=== PATIENT | female | born 1975 | race Two or more races ===

== ENCOUNTER 2017-03-11 21:59 | Emergency (ER) | payer OTHER ==
[~2017-03-11] VITALS: Ht 154.9 cm; Wt 93.0 kg
[~2017-03-11 21:59] MED LIST: ALBUTEROL SULF8.5 GM INH; CIPROFLOXACIN250 MG PO; FLOMAX0.4 MG ORAL; NITROFURANTOIN100 M2 ORAL; NKM; NORCO 10/3251 EA ORAL; OMEPRAZOLE20 M2 ORAL; TRAMADOL HCL50 MG ORAL
[2017-03-11] MEDS ORDERED: DICYCLOMINE HCL10 MG PO (22:44)
[2017-03-11] MEDS ORDERED: ATORVASTATIN CA20 MG ORAL (22:47)
[2017-03-11] MEDS ORDERED: LISINOPRIL2.5 MG ORAL (22:48)
[2017-03-11] MEDS ORDERED: METFORMIN HCL1000 M1 ORAL (22:48)
[2017-03-11] MEDS ORDERED: ASPIRIN81 MG ORAL (22:49)
[2017-03-11] MEDS ORDERED: Morphine Sulfate 4mg/ml Inj IVP ONE (23:00)
[2017-03-11 23:18] LABS: BASOPHILS % (AUTO) 0.9 % (0.0-2.0); EOSINOPHILS % (AUTO) 2.2 % (0.0-3.0); MEAN CORPUSCULAR HEMOGLOBIN 30.9 PG (27.0-31.0); MEAN CORPUSCULAR HGB CONC 34.2 G/DL (32.0-36.0); MEAN CORPUSCULAR VOLUME 90 FL (80-99); MEAN PLATELET VOLUME 8.8 FL (6.5-10.1); MONOCYTES % (AUTO) 6.7 % (1.0-10.0); NEUTROPHILS % (AUTO) 64.1 % (45.0-75.0); PLATELET COUNT 297 K/UL (150-450); RED BLOOD COUNT 4.32 M/UL (4.20-5.40); RED CELL DISTRIBUTION WIDTH 13.1 % (11.6-14.8)
[2017-03-11 23:20] LABS: APPEARANCE,URINE SLIGHTLY CLOUDY; KETONES,URINE NEGATIVE (NEGATIVE); LEUKOCYTE ESTERASE ,URINE 1+ (NEGATIVE); NITRITE,URINE NEGATIVE (NEGATIVE); PH,URINE 7 (4.5-8.0); PROTEIN,URINE NEGATIVE (NEGATIVE); UROBILINOGEN,URINE NORMAL MG/DL (0.0-1.0)
[2017-03-11 23:26] LABS: BACTERIA,URINE FEW /HPF; SQUAMOUS EPITHELIAL CELL,UR MODERATE /LPF (NONE/OCC); WBC,URINE 0-2 /HPF (0 - 2)
[2017-03-11 23:41] VITALS: BP 125/76
[2017-03-12 00:08] LABS: ALANINE AMINOTRANSFERASE 28 U/L (3-33); ANION GAP 13 (5-15); ASPARTATE AMINO TRANSFERASE 18 U/L (5-40); CALCIUM 11.1 mg/dL (8.6-10.2); CARBON DIOXIDE 24 mEQ/L (20-30); CHLORIDE 104 mEQ/L (98-107); CREATININE 0.8 mg/dL (0.5-0.9); GLOMERULAR FILTRATION RATE > 60 mL/min (>60); HEMOLYSIS 3; LIPASE 32 U/L (< 60); POTASSIUM 3.9 mEQ/L (3.4-4.9); SODIUM 141 mEQ/L (135-145); TOTAL PROTEIN 6.7 g/dL (6.6-8.7)
[2017-03-12] MEDS ORDERED: Levofloxacin 500mg tab ORAL ONE (01:15)
[2017-03-12 01:22] VITALS: BP 127/68
[2017-03-12] MEDS ORDERED: LEVAQUIN500 MG ORAL (01:28)
[2017-03-12] MEDS ORDERED: METRONIDAZOLE500 MG ORAL (01:28)
[2017-03-12] MEDS ORDERED: ACETAMINOPHEN-1 EAC1 ORAL (01:28)
[2017-03-12 01:41] VITALS: BP 127/68
--- NOTE | 2017-03-12 03:20 | Emergency Room Report ---
History of Present Illness General Chief Complaint: Abdominal Pain Source: Patient Present Illness HPI Patient presents with fairly diffuse abdominal pain She reports that she has had pain previously in the lower abdomen however since Wednesday she felt diffuse pain Patient reports that initially she had one episode of vomiting and diarrhea however none since then Denies any fevers or chills denies any chest pain shortness of breath pain is 7/ 10 Patient denies any blood in stool denies any trauma Denies any recent travel Allergies: Coded Allergies: No Known Allergies (Unverified , 12/18/13) Patient History Past Medical History: see triage record Pertinent Family History: none Last Menstrual Period: 02/19/17 Now: No Reviewed Nursing Documentation: PMH: Agreed, PSxH: Agreed Nursing Documentation-PMH Past Medical History: No History, Except For Hx Cardiac Problems: No - Thyroid problems Hx Hypertension: Yes Hx Asthma: Yes Hx Diabetes: Yes Hx Cancer: No Hx Gastrointestinal Problems: No - Kidney stones Hx Neurological Problems: No Review of Systems All Other Systems: negative except mentioned in HPI Physical Exam Vital Signs Date Time Temp Pulse Resp B/P (MAP) Pulse Ox O2 Delivery O2 Flow Rate FiO2 03/11/17 22:09 98.2 82 17 143/95 99 Room Air Sp02 EP Interpretation: reviewed, normal General Appearance: no apparent distress Head: normocephalic, atraumatic Eyes: bilateral eye PERRL, bilateral eye EOMI ENT: hearing grossly normal, normal pharynx, TMs + canals normal, uvula midline Neck: full range of motion, supple, no meningismus, no bony tend Respiratory: lungs clear, normal breath sounds, no rhonchi, no respiratory distress, no retraction, no accessory muscle use Cardiovascular #1: normal peripheral pulses, regular rate, rhythm, no edema, no gallop, no JVD, no murmur Gastrointestinal: normal bowel sounds, soft, no mass, no organomegaly, non- distended, no guarding, no hernia, no pulsatile mass, no rebound, tenderness - Patient is uncomfortable on palpation diffusely, no obvious focal finding however some epigastric and mid abdominal pain Genitourinary: no CVA tenderness Musculoskeletal: normal inspection Neurologic: oriented x3, responsive, needle polisher III-XII nml as tested, motor strength/ tone normal, sensory intact Psychiatric: mood/affect normal Skin: normal color, no rash, warm/dry, palpation normal Lymphatic: normal inspection, no adenopathy Medical Decision Making Diagnostic Impression: Primary Impression: colitis ER Course With the patient's history and examination, multiple differentials considered, including but not limited to , ectopic , ovarian torsion, gastritis, cholecystitis, pancreatitis, appendicitis Patient's blood work is at baseline levels CT imaging does reveal some extending and diffuse Thickening in line with colitis versus diverticulitis Patient has done well throughout her stay Given the lack of any obvious sepsis Patient's white blood cell count is appropriate And patient's there good candidate for initial conservative outpatient trial Labs Test 03/11/17 23:00 White Blood Count 11.0 K/UL (4.8-10.8) Red Blood Count 4.32 M/UL (4.20-5.40) Hemoglobin 13.4 G/DL (12.0-16.0) Hematocrit 39.1 % (37.0-47.0) Mean Corpuscular Volume 90 FL (80-99) Mean Corpuscular Hemoglobin 30.9 PG (27.0-31.0) Mean Corpuscular Hemoglobin Concent 34.2 G/DL (32.0-36.0) Red Cell Distribution Width 13.1 % (11.6-14.8) Platelet Count 297 K/UL (150-450) Mean Platelet Volume 8.8 FL (6.5-10.1) Neutrophils (%) (Auto) 64.1 % (45.0-75.0) Lymphocytes (%) (Auto) 26.0 % (20.0-45.0) Monocytes (%) (Auto) 6.7 % (1.0-10.0) Eosinophils (%) (Auto) 2.2 % (0.0-3.0) Basophils (%) (Auto) 0.9 % (0.0-2.0) Urine Color Pale yellow Urine Appearance Slightly cloudy Urine pH 7 (4.5-8.0) Urine Specific [place] 1.015 (1.005-1.035) Urine Protein Negative (NEGATIVE) Urine Glucose (UA) Negative (NEGATIVE) Urine Ketones Negative (NEGATIVE) Urine Occult Blood 2+ (NEGATIVE) Urine Nitrite Negative (NEGATIVE) Urine Bilirubin Negative (NEGATIVE) Urine Urobilinogen Normal MG/DL (0.0-1.0) Urine Leukocyte Esterase 1+ (NEGATIVE) Urine RBC 5-10 /HPF (0 - 2) Urine WBC 0-2 /HPF (0 - 2) Urine Squamous Epithelial Cells Moderate /LPF (NONE/OCC) Urine Bacteria Few /HPF (NONE) Urine HCG, Qualitative Negative Sodium Level 141 mEQ/L (135-145) Potassium Level 3.9 mEQ/L (3.4-4.9) Chloride Level 104 mEQ/L (98-107) Carbon Dioxide Level 24 mEQ/L (20-30) Anion Gap 13 (5-15) Blood Urea Nitrogen 7 mg/dL (7-23) Creatinine 0.8 mg/dL (0.5-0.9) Estimat Glomerular Filtration Rate > 60 mL/min (>60) Glucose Level 205 mg/dL (74-106) Calcium Level 11.1 mg/dL (8.6-10.2) Total Bilirubin < 0.2 mg/dL (0.0-1.2) Aspartate Amino Transf (AST/SGOT) 18 U/L (5-40) Alanine Aminotransferase (ALT/SGPT) 28 U/L (3-33) Alkaline Phosphatase 88 U/L (35-104) Total Protein 6.7 g/dL (6.6-8.7) Albumin 3.4 g/dL (3.5-5.2) Globulin 3.3 g/dL Albumin/Globulin Ratio 1.0 (1.0-2.7) Lipase 32 U/L (< 60) CT/MRI/US Diagnostic Results CT/MRI/US Diagnostic Results : Impression CT abdomen pelvis: Refer to her report for full specifics, evidence of colon wall thickening, in line with colitis versus diverticulitis Last Vital Signs Date Time Temp Pulse Resp B/P (MAP) Pulse Ox O2 Delivery O2 Flow Rate FiO2 03/12/17 01:41 98.4 78 17 127/68 98 Room Air Status: improved Disposition: HOME, SELF-CARE Condition: Improved Scripts Acetaminophen With Codeine (T#3) (TYLENOL #3 TAB*) Y Tab 1 TAB ORAL Q8H Y for For Pain, #12 TAB Prov: JENNIFER IGLESIAS.OGia 03/12/17 Metronidazole* (FLAGYL*) 500 Mg Tablet 500 MG ORAL BID, #20 TAB Prov: JENNIFER IGLESIAS.OGia 03/12/17 Levofloxacin* (LEVAQUIN*) 500 Mg Tablet 500 MG ORAL DAILY for 10 Days, TAB Prov: JENNIFER IGLESIAS D.O. 03/12/17 Referrals: [facility],REFERRIN (PCP) Patient Instructions: Abdominal Pain, Adult, Colitis Additional Instructions: Patient is provided with the discharge instructions notified to follow up with primary doctor in the next 2-3 days otherwise return to the er with any worsening symptoms. Please note that this report is being documented using [employer] technology. This can lead to erroneous entry secondary to incorrect interpretation by the dictating instrument. JENNIFER IGLESIAS D.O. Mar 12, 2017 03:20
--- NOTE | 2017-03-12 08:39 | Diagnostic Imaging Report ---
Indication: Abdominal pain Technique: Continuous helical transaxial imaging of the abdomen and pelvis was obtained from the lung bases to the pubic symphysis during intravenous contrast administration. Coronal 2-D reformats were also obtained. Study obtained in a Siemens sensation [address] Total Dose length Product (DLP): [address] Dose Index Volume (CTDIvol): 26 mGy Comparison: 04/21/14 Findings: The lung bases are clear. The liver is hypodense consistent with fatty infiltration. There is some inflammatory soft tissue stranding in the area of the ascending colon and right paracolic gutter. There are small inflammatory nodes likely reactive. The appendix is not seen. The nature of the inflammation is unknown but given the location and presence of diverticula findings could be due to diverticulitis. A colitis is not excluded. There is no pneumatosis or free air. There is no free fluid. Bilateral ovaries noted. Uterus noted but not evaluated well. There is a 5 mm stone in the lower pole calyx of the left kidney. There is mild right hydronephrosis without evidence of an obstructing stone. No evidence of bowel obstruction. The gallbladder is contracted and not evaluated well on this examination. Impression: Inflammation in the right lower quadrant of abdomen. Findings may be due to diverticulitis or colitis. Appendicitis is doubtful since there is no identification of an enlarged appendix. Small nonobstructive stone in the left kidney. Minimal right hydronephrosis without obstructing stone. The possibility of a recently passed stone might be considered. Pyelonephritis or pyelitis might be considered. Please correlate clinically Fatty liver The CT scanner at [facility] is accredited by the [employer] and the scans are performed using dose optimization techniques as appropriate to a performed exam including Automatic Exposure control.
== END 2017-03-12 01:45 | disposition home or self-care (01) ==
LOC: EMR 22:40
DX: K52.9 Noninfective gastroenteritis and colitis, unspecified (principal); E11.9 Type 2 diabetes mellitus without complications; I10 Essential (primary) hypertension; J45.909 Unspecified asthma, uncomplicated; N20.0 Calculus of kidney; K76.0 Fatty (change of) liver, not elsewhere classified
CPT/HCPCS: 36415; 74177; 80053; 81003; 81025; 83690; 85025; 96374; 96375; 99284; J2270; J2405; Q9967

== ENCOUNTER 2017-07-04 00:44 | Emergency (ER) | payer MEDICAID, OTHER ==
[~2017-07-04] VITALS: Ht 154.9 cm; Wt 90.7 kg
[~2017-07-04 00:44] MED LIST changes: +ACETAMINOPHEN-1 EAC1 ORAL; +ASPIRIN81 MG ORAL; +ATORVASTATIN CA20 MG ORAL; +DICYCLOMINE HCL10 MG PO; +LEVAQUIN500 MG ORAL; +LISINOPRIL2.5 MG ORAL; +METFORMIN HCL1000 M1 ORAL; +METRONIDAZOLE500 MG ORAL
[2017-07-04] MEDS ORDERED: HYDROmorphone 1mg/ml Carpuject IVP ONE (01:15)
--- NOTE | 2017-07-04 01:17 | Emergency Room Report ---
History of Present Illness General Chief Complaint: Abdominal Pain Source: Patient Present Illness HPI This is a 42-year-old female with history of kidney stone. She presents with left lower quadrant pain the last 3 days. Worse with palpation. No vomiting no diarrhea. No fever. No dysuria frequency. Pain is 9/10. Allergies: Coded Allergies: No Known Allergies (Unverified , 12/18/13) Patient History Past Medical History: see triage record, old chart reviewed Past Surgical History: other Pertinent Family History: none Social History: Denies: smoking Last Menstrual Period: 06/19/17 Now: No - unknown : 1 Para: 1 Immunizations: other Reviewed Nursing Documentation: PMH: Agreed, PSxH: Agreed Nursing Documentation-PMH Hx Cardiac Problems: No - Thyroid problems, Kidney stones Hx Hypertension: Yes Hx Asthma: Yes Hx Diabetes: Yes Hx Cancer: No Hx Gastrointestinal Problems: Yes - Crohn's Hx Neurological Problems: No Review of Systems Eye: Denies: eye pain, blurred vision ENT: Denies: ear pain, nose congestion, throat swelling Respiratory: Denies: cough, shortness of breath Cardiovascular: Denies: chest pain, palpitations Gastrointestinal: Reports: abdominal pain, Denies: diarrhea, nausea, vomiting Musculoskeletal: Denies: back pain, joint pain Skin: Denies: rash Neurological: Denies: headache, numbness Endocrine: Denies: increased thirst, increased urine Hematologic/Lymphatic: Denies: easy bruising All Other Systems: negative except mentioned in HPI Physical Exam Vital Signs Date Time Temp Pulse Resp B/P (MAP) Pulse Ox O2 Delivery O2 Flow Rate FiO2 07/04/17 00:55 98.1 71 18 199/107 93 Room Air vitals with high blood pressure Sp02 EP Interpretation: reviewed, normal General Appearance: well appearing, no apparent distress, alert, obese Head: normocephalic, atraumatic Eyes: bilateral eye PERRL, bilateral eye EOMI ENT: hearing grossly normal, normal pharynx Neck: full range of motion, supple, no meningismus Respiratory: chest non-tender, lungs clear, normal breath sounds Cardiovascular #1: regular rate, rhythm, no murmur Gastrointestinal: normal bowel sounds, non tender, no mass, no organomegaly, no bruit, non-distended, tenderness - left lower quadrant tenderness Musculoskeletal: back normal, gait/station normal, normal range of motion Neurologic: alert, oriented x3 Psychiatric: mood/affect normal Skin: warm/dry Medical Decision Making Diagnostic Impression: Primary Impression: Ureteral stone with hydronephrosis ER Course pt presents with ureteral stone and colic. no e/o infection or This patient presents with ureteral stone.appy. pain well controlled. will dc home. Lab Results Impression labs unremarkable. CT/MRI/US Diagnostic Results CT/MRI/US Diagnostic Results : Imaging Test Ordered: CT abd and pelvis Impression Read by radiologist. 4mm left UVJ stone. Last Vital Signs Date Time Temp Pulse Resp B/P (MAP) Pulse Ox O2 Delivery O2 Flow Rate FiO2 07/04/17 00:55 98.1 71 18 199/107 93 Room Air Status: improved Disposition: HOME, SELF-CARE Condition: Stable Scripts Tamsulosin Hcl (TAMSULOSIN HCL*) 0.4 Mg Cap.er.24h 0.4 MG ORAL BEDTIME, #14 CAP Prov: RUSTY KAISER M.D. 07/04/17 Hydrocodone/Acetaminophen 5-325* (HYDROCODONE/ACETAMINOPHEN 5-325*) 1 Each Tablet 1 TAB ORAL Q6H Y for For Pain, #30 TAB 0 Refills Prov: RUSTY KAISER M.D. 07/04/17 Referrals: Yobany Nguyen MD (PCP) Additional Instructions: Followup with your DrGia within a week. You will be referred to see a urologist. Return if symptom worsen. Return for fever. RUSTY KAISER M.D. Jul 04, 2017 01:17
[2017-07-04 01:23] LABS: APPEARANCE,URINE CLEAR; KETONES,URINE NEGATIVE (NEGATIVE); LEUKOCYTE ESTERASE ,URINE 1+ (NEGATIVE); NITRITE,URINE NEGATIVE (NEGATIVE); PH,URINE 6.5 (4.5-8.0); PROTEIN,URINE NEGATIVE (NEGATIVE); UROBILINOGEN,URINE NORMAL MG/DL (0.0-1.0)
[2017-07-04 01:31] LABS: BASOPHILS % (AUTO) 1.1 % (0.0-2.0); EOSINOPHILS % (AUTO) 2.6 % (0.0-3.0); LYMPHOCYTES % (AUTO) 34.1 % (20.0-45.0); MEAN CORPUSCULAR HEMOGLOBIN 29.4 PG (27.0-31.0); MEAN CORPUSCULAR HGB CONC 32.9 G/DL (32.0-36.0); MEAN CORPUSCULAR VOLUME 89 FL (80-99); MEAN PLATELET VOLUME 8.2 FL (6.5-10.1); MONOCYTES % (AUTO) 6.4 % (1.0-10.0); NEUTROPHILS % (AUTO) 55.8 % (45.0-75.0); PLATELET COUNT 401 K/UL (150-450); RED BLOOD COUNT 4.62 M/UL (4.20-5.40); RED CELL DISTRIBUTION WIDTH 12.8 % (11.6-14.8); WHITE BLOOD COUNT 9.3 K/UL (4.8-10.8)
[2017-07-04 01:40] LABS: BACTERIA,URINE OCCASIONAL /HPF; RBC,URINE 20-30 /HPF (0 - 2); SQUAMOUS EPITHELIAL CELL,UR FEW /LPF (NONE/OCC)
[2017-07-04 01:42] LABS: ANION GAP 7 mmol/L (5-15); CALCIUM 11.3 MG/DL (8.5-10.1); CARBON DIOXIDE 28 MMOL/L (21-32); CHLORIDE 105 MMOL/L (98-107); CREATININE 0.9 MG/DL (0.55-1.30); GLOMERULAR FILTRATION RATE > 60 mL/min (>60); SODIUM 140 MMOL/L (136-145)
[2017-07-04 01:47] LABS: ALANINE AMINOTRANSFERASE 30 U/L (12-78); ALBUMIN/GLOBULIN RATIO 0.8 (1.0-2.7); ASPARTATE AMINO TRANSFERASE 22 U/L (15-37); LIPASE 145 U/L (73-393); TOTAL PROTEIN 7.6 G/DL (6.4-8.2)
[2017-07-04 02:33] VITALS: BP 180/104
[2017-07-04] MEDS ORDERED: TAMSULOSIN HCL0.4 MG ORAL (03:25)
[2017-07-04] MEDS ORDERED: HYDROCODON-ACE1 EA15 ORAL (03:25)
[2017-07-04 03:50] VITALS: BP 160/68
[2017-07-04 03:51] VITALS: BP 160/89
--- NOTE | 2017-07-04 10:03 | Diagnostic Imaging Report ---
Indication: Abdominal pain, left-sided. Technique: CT of the abdomen and pelvis utilizing automated exposure control without oral or intravenous contrast. CT dose: Total DLP 1558 mGycm; CTDI vol 29.4 mGy Comparison: 03/11/2017 Findings: Please note that evaluation of the abdominal and pelvic viscera is limited without the use of intravenous and oral contrast. Within these limitations, the following observations are made: Minimal dependent atelectasis noted in the lung bases. Heart size is within normal limits. There is no pericardial effusion. Hypoattenuation of the liver relative to the spleen compatible with hepatic steatosis. No discrete liver mass appreciated on this noncontrast exam. Gallbladder unremarkable. Noncontrast evaluation of the spleen, adrenal glands and pancreas is grossly unremarkable. There is a 4 mm stone at the left ureterovesicular junction (series 3 image #134). There is mild left-sided hydroureteronephrosis. Additional punctate nonobstructing stones are noted within the left kidney (series 3 image #64 and image #54). No urinary tract stone is seen on the right. Bladder is unremarkable. Uterus and adnexa are grossly unremarkable in appearance for a premenopausal female. There is no evidence of bowel obstruction. No free intraperitoneal fluid or air. Appendix is normal. A few scattered colonic diverticula are seen. No evidence to suggest an acute diverticulitis. Abdominal aorta is normal in caliber. Small retroperitoneal lymph nodes are noted, none of which are pathologically enlarged by imaging size criteria. These are thought to be reactive in etiology. No acute osseous abnormality is seen. Impression: Limited evaluation without intravenous or oral contrast. * 4 mm left ureterovesicular junction stone with mild left-sided hydroureteronephrosis. Correlate with urinalysis to exclude pyelitis/pyelonephritis. Additional punctate nonobstructing left renal stone seen. No urinary tract stone seen on the right. * Hepatic steatosis. * Diverticulosis without evidence to suggest acute diverticulitis. This corresponds with the statrad preliminary report. The CT scanner at [facility] is accredited by the [employer] and the scans are performed using protocols designed to limit radiation exposure to as low as reasonably achievable to attain images of sufficient resolution adequate for diagnostic evaluation.
== END 2017-07-04 03:51 | disposition home or self-care (01) ==
LOC: EMR 01:15
DX: N13.2 Hydronephrosis with renal and ureteral calculous obstruction (principal); E11.9 Type 2 diabetes mellitus without complications; J45.909 Unspecified asthma, uncomplicated; K57.30 Diverticulosis of large intestine without perforation or abscess without bleeding; K76.0 Fatty (change of) liver, not elsewhere classified
CPT/HCPCS: 36415; 74176; 80053; 81003; 81025; 83690; 85025; 96374; 96375; 99284; J1170; J2405

== ENCOUNTER 2018-07-19 18:08 | Emergency (ER) | payer MEDICAID ==
[~2018-07-19] VITALS: Ht 152.4 cm; Wt 95.3 kg
[~2018-07-19 18:08] MED LIST changes: +HYDROCODON-ACE1 EA15 ORAL; +TAMSULOSIN HCL0.4 MG ORAL
[2018-07-19 18:22] VITALS: BP 170/99
--- NOTE | 2018-07-19 18:27 | Emergency Room Report ---
History of Present Illness General Chief Complaint: Nausea Source: Patient (Charissa Pickett DO) Present Illness HPI Patient presents with complaints of nausea and vomiting Reports that she had bilateral upper epigastric discomfort Now recently having suprapubic and lower abdominal discomfort as well Triage note reports right lower quadrant however patient points to suprapubic and bilateral lower abdomen and denies any diarrhea patient was questioning possible Denies any fevers denies any flank pain (SanchezlucienCharissa WRIGHT) Allergies: Coded Allergies: No Known Allergies (Unverified , 12/18/13) Patient History Past Medical History: see triage record Pertinent Family History: none Last Menstrual Period: 05/02/18 Reviewed Nursing Documentation: PMH: Agreed; PSxH: Agreed (SanchezCharissa mcgraw DO) Nursing Documentation-PMH Past Medical History: No History, Except For Hx Cardiac Problems: No - Thyroid problems, Kidney stones Hx Hypertension: Yes Hx Asthma: Yes Hx Diabetes: Yes Hx Cancer: No Hx Gastrointestinal Problems: Yes - Crohn's Hx Neurological Problems: No (hCarissa Pickett DO) Review of Systems All Other Systems: negative except mentioned in HPI (SanchezporscheCharissa WRIGHT) Physical Exam Vital Signs Date Time Temp Pulse Resp B/P (MAP) Pulse Ox O2 Delivery O2 Flow Rate FiO2 07/19/18 18:10 97.9 101 18 175/103 98 Room Air Sp02 EP Interpretation: reviewed, normal General Appearance: well appearing, no apparent distress Head: normocephalic, atraumatic Eyes: bilateral eye PERRL, bilateral eye EOMI ENT: hearing grossly normal, normal pharynx, TMs + canals normal, uvula midline Neck: full range of motion, supple, no meningismus, no bony tend Respiratory: lungs clear, normal breath sounds, no rhonchi, no respiratory distress, no retraction, no accessory muscle use Cardiovascular #1: normal peripheral pulses, regular rate, rhythm, no edema, no gallop, no JVD, no murmur Gastrointestinal: normal bowel sounds, non tender - On palpation however subjectively points to mid abdomen bilateral lower abdomen, soft, no mass, no organomegaly, non-distended, no guarding, no hernia, no pulsatile mass, no rebound Genitourinary: no CVA tenderness Musculoskeletal: normal inspection Neurologic: oriented x3, responsive, disease control inspector III-XII nml as tested, motor strength/ tone normal, sensory intact Psychiatric: mood/affect normal Skin: normal color, no rash, warm/dry, palpation normal Lymphatic: normal inspection, no adenopathy (Charissa Pickett DO) Medical Decision Making Diagnostic Impression: Primary Impression: Nausea and vomiting in adult patient Additional Impressions: Abdominal pain Qualified Codes: R10.30 - Lower abdominal pain, unspecified Threatened in first trimester ER Course With the patient's history and examination, multiple differentials considered, including but not limited to , ectopic , ovarian torsion, gastritis, cholecystitis, pancreatitis, appendicitis Patient has had several CAT scan imaging here in the hospital At this time we will initiate workup with blood work and urine sample Patient's abdomen remains soft my consideration for appendicitis is low Ovarian torsion is to be considered however again patient appears fairly comfortable Patient's test is positive Patient therefore is having pelvic ultrasound given that there is no initial ultrasound Less likely for ectopic given the lack of any bleeding However will be documented along with beta Quant and anticipate close outpatient follow-up Labs Test 07/19/18 18:20 White Blood Count 12.3 K/UL (4.8-10.8) Red Blood Count 4.78 M/UL (4.20-5.40) Hemoglobin 13.9 G/DL (12.0-16.0) Hematocrit 43.0 % (37.0-47.0) Mean Corpuscular Volume 90 FL (80-99) Mean Corpuscular Hemoglobin 29.1 PG (27.0-31.0) Mean Corpuscular Hemoglobin Concent 32.3 G/DL (32.0-36.0) Red Cell Distribution Width 13.1 % (11.6-14.8) Platelet Count 325 K/UL (150-450) Mean Platelet Volume 8.2 FL (6.5-10.1) Neutrophils (%) (Auto) 59.9 % (45.0-75.0) Lymphocytes (%) (Auto) 32.8 % (20.0-45.0) Monocytes (%) (Auto) 4.6 % (1.0-10.0) Eosinophils (%) (Auto) 1.4 % (0.0-3.0) Basophils (%) (Auto) 1.3 % (0.0-2.0) Urine Color Pale yellow Urine Appearance Clear Urine pH 7 (4.5-8.0) Urine Specific [place] 1.010 (1.005-1.035) Urine Protein Negative (NEGATIVE) Urine Glucose (UA) Negative (NEGATIVE) Urine Ketones Negative (NEGATIVE) Urine Blood 4+ (NEGATIVE) Urine Nitrite Negative (NEGATIVE) Urine Bilirubin Negative (NEGATIVE) Urine Urobilinogen Normal MG/DL (0.0-1.0) Urine Leukocyte Esterase Negative (NEGATIVE) Urine HCG, Qualitative Positive (NEGATIVE) Sodium Level 136 MMOL/L (136-145) Potassium Level 3.5 MMOL/L (3.5-5.1) Chloride Level 101 MMOL/L (98-107) Carbon Dioxide Level 27 MMOL/L (21-32) Anion Gap 8 mmol/L (5-15) Blood Urea Nitrogen 8 mg/dL (7-18) Creatinine 0.9 MG/DL (0.55-1.30) Estimat Glomerular Filtration Rate > 60 mL/min (>60) Glucose Level 115 MG/DL (74-106) Calcium Level 12.4 MG/DL (8.5-10.1) (Charissa Pickett DO) ER Course Patient signout to me. She was pending ultrasound. I did a bedside ultrasound , transabdominal. There was an intrauterine . By my estimate about 8- 10 weeks. Good movement and good heartbeat. I will discharge the patient with threatened miscarriage precaution. Review patient medication. Told patient to stop her lisinopril. She can double up On her metoprolol for blood pressure control. (Alexis Mathew MD) Last Vital Signs Date Time Temp Pulse Resp B/P (MAP) Pulse Ox O2 Delivery O2 Flow Rate FiO2 07/19/18 18:22 97.9 88 19 170/99 99 Room Air Status: improved (Charissa Pickett DO) Disposition: HOME, SELF-CARE Condition: Stable Scripts Metoclopramide Hcl* (REGLAN*) 10 Mg Tablet 10 MG ORAL THREE TIMES A DAY, #10 TAB Prov: Charissa Pickett DO 07/19/18 Additional Instructions: Follow-up with your [facility] in 7 days. Take vitamins. You are about 8- 10 weeks . Return if symptom worsen. Charissa Pickett DO Jul 19, 2018 18:27 Alexis Mathew MD Jul 19, 2018 19:35
[2018-07-19] MEDS ORDERED: Ketorolac 30mg Inj IV ONE (18:30)
[2018-07-19] MEDS ORDERED: OMEPRAZOLE20 M2 ORAL (18:32)
[2018-07-19] MEDS ORDERED: METOPROLOL TART25 MG ORAL (18:32)
[2018-07-19] MEDS ORDERED: ATORVASTATIN CA20 MG ORAL (18:32)
[2018-07-19] MEDS ORDERED: ASPIRIN81 MG ORAL (18:32)
[2018-07-19 18:42] LABS: BASOPHILS % (AUTO) 1.3 % (0.0-2.0); EOSINOPHILS % (AUTO) 1.4 % (0.0-3.0); HEMOGLOBIN 13.9 G/DL (12.0-16.0); LYMPHOCYTES % (AUTO) 32.8 % (20.0-45.0); MEAN CORPUSCULAR VOLUME 90 FL (80-99); MONOCYTES % (AUTO) 4.6 % (1.0-10.0); NEUTROPHILS % (AUTO) 59.9 % (45.0-75.0); PLATELET COUNT 325 K/UL (150-450); RED BLOOD COUNT 4.78 M/UL (4.20-5.40); RED CELL DISTRIBUTION WIDTH 13.1 % (11.6-14.8); WHITE BLOOD COUNT 12.3 K/UL (4.8-10.8)
[2018-07-19 18:44] LABS: APPEARANCE,URINE CLEAR; BILIRUBIN, URINE NEGATIVE (NEGATIVE); COLOR,URINE PALE YELLOW; GLUCOSE, URINE (UA) NEGATIVE (NEGATIVE); KETONES,URINE NEGATIVE (NEGATIVE); LEUKOCYTE ESTERASE ,URINE NEGATIVE (NEGATIVE); NITRITE,URINE NEGATIVE (NEGATIVE); PH,URINE 7 (4.5-8.0); PROTEIN,URINE NEGATIVE (NEGATIVE); UROBILINOGEN,URINE NORMAL MG/DL (0.0-1.0)
[2018-07-19 18:51] LABS: ANION GAP 8 mmol/L (5-15); BLOOD UREA NITROGEN 8 mg/dL (7-18); CALCIUM 12.4 MG/DL (8.5-10.1); CARBON DIOXIDE 27 MMOL/L (21-32); CHLORIDE 101 MMOL/L (98-107); CREATININE 0.9 MG/DL (0.55-1.30); POTASSIUM 3.5 MMOL/L (3.5-5.1); SODIUM 136 MMOL/L (136-145)
[2018-07-19] MEDS ORDERED: REGLAN10 MG ORAL (19:18)
[2018-07-19] MEDS ORDERED: Metoprolol Tartrate 50mg tab ORAL ONE (20:00)
[2018-07-19 20:18] VITALS: BP 140/74
[2018-07-19 20:28] VITALS: BP 140/74
--- NOTE | 2018-07-19 20:49 | Diagnostic Imaging Report ---
EXAM: US First Trimester, Transabdominal US , Transvaginal CLINICAL HISTORY: PAIN TECHNIQUE: Real-time transabdominal and transvaginal obstetrical ultrasound of the maternal pelvis and a first trimester with image documentation. Transvaginal imaging was used for better evaluation of the fetus and adnexa. COMPARISON: No relevant prior studies available. FINDINGS: Gestation: Single live IUP with an estimated gestational age of 10 weeks and 1 day. Normal heart tones measuring up to 165 bpm. Placenta/amniotic fluid: Cannot be adequately evaluated due to the early gestational age. Uterus/cervix: Cervix is long and closed measuring up to 4.2 cm. No myometrial mass. Ovaries: Left ovary measures 3.2 x 2.1 x 1.7 cm. Right ovary measures 2.7 x 2.8 x 1.7 cm. Question left ovary corpus luteum. No mass. IMPRESSION: Single live IUP with an estimated gestational age of 10 weeks and 1 day.
== END 2018-07-19 20:36 | disposition home or self-care (01) ==
LOC: EMR 18:33
DX: O20.0 Threatened abortion (principal); Z3A.00 Weeks of gestation of pregnancy not specified; R11.2 Nausea with vomiting, unspecified; R10.9 Unspecified abdominal pain; I10 Essential (primary) hypertension; E11.9 Type 2 diabetes mellitus without complications
CPT/HCPCS: 36415; 76801; 76830; 80048; 81003; 81025; 84702; 85025; 96361; 96374; 96375; 99284; J1885; J2405

== ENCOUNTER 2018-07-24 01:05 | Emergency (ER) | payer MEDICAID ==
[~2018-07-24] VITALS: Ht 154.9 cm; Wt 93.0 kg
[~2018-07-24 01:05] MED LIST changes: +METOPROLOL TART25 MG ORAL; +REGLAN10 MG ORAL
--- NOTE | 2018-07-24 01:25 | NUR ---
ED Nurse Note: Patient walk in c/o lower abdominal cramping and vaginal bleeding since 2229 last night. Patient states she was seen at [facility] on Wednesday for abdominal pain. Patient is 10 weeks . Pt AO4. NAD. VSS. accompanied by family member. Reports abdominal pain 04/27.
--- NOTE | 2018-07-24 02:00 | NUR ---
ED Nurse Note: IV access established. Blood and urine collected; sent down to lab.
--- NOTE | 2018-07-24 02:15 | NUR ---
ED Nurse Note: 2nd type & screen collected; sent down to lab.
--- NOTE | 2018-07-24 02:27 | Emergency Room Report ---
History of Present Illness General Chief Complaint: Complications Source: Patient Present Illness HPI Patient was recently diagnosed with a . Patient is about 10 weeks per last visit. Patient develop acute onset of vaginal bleeding today. She's complained pelvic pain. She denies any fever chest pain shortness of breath. No other complaints are noted. Symptoms noted to be moderate to severe. No other modifying factors. No other associated signs and symptoms. No other complaints were noted. Allergies: Coded Allergies: No Known Allergies (Unverified , 12/18/13) Patient History Past Medical History: DM, HTN Past Surgical History: none Pertinent Family History: none Social History: Denies: smoking, alcohol use, drug use Last Menstrual Period: 04/2018 Now: Yes : 2 Para: 1 Reviewed Nursing Documentation: PMH: Agreed; PSxH: Agreed Nursing Documentation-PMH Hx Cardiac Problems: No - Thyroid problems, Kidney stones Hx Hypertension: Yes Hx Asthma: Yes Hx Diabetes: Yes Hx Cancer: No Hx Gastrointestinal Problems: Yes - Crohn's Hx Neurological Problems: No Review of Systems All Other Systems: negative except mentioned in HPI Physical Exam Vital Signs Date Time Temp Pulse Resp B/P (MAP) Pulse Ox O2 Delivery O2 Flow Rate FiO2 07/24/18 01:21 98.2 85 16 179/91 98 Room Air Sp02 EP Interpretation: reviewed, normal General Appearance: normal inspection, well appearing, no apparent distress, alert Head: atraumatic Eyes: bilateral eye normal inspection ENT: normal ENT inspection, hearing grossly normal, normal voice Neck: normal inspection, full range of motion, supple, no bony tend Respiratory: normal inspection, lungs clear, normal breath sounds, no respiratory distress, no retraction, no wheezing Cardiovascular #1: regular rate, rhythm, no edema Gastrointestinal: normal inspection, normal bowel sounds, non tender, soft, no guarding, no hernia Genitourinary: no CVA tenderness Musculoskeletal: normal inspection, back normal, normal range of motion Neurologic: normal inspection, alert, responsive, speech normal Psychiatric: normal inspection, judgement/insight normal, mood/affect normal Skin: normal inspection, normal color, no rash Medical Decision Making Diagnostic Impression: Primary Impression: Threatened miscarriage ER Course Patient presents emergency department today complaining of vaginal bleeding. Differential considerations include ectopic , miscarriage, just name a few. Patient's laboratory workup was not impressive. Patient's beta hCG was elevated. Patient's pelvic ultrasound did not show any acute changes and showed a positive IUP. Patient's blood type was positive Rh. Patient did not require a rhogram injection. Patient's vaginal exam did not show any evidence of active vaginal bleeding. Therefore felt the patient be discharged home.Patient is advised to follow up with primary doctor in 2-3 days and return the emergency room for any worsening symptoms and as needed. Labs Test 07/24/18 02:00 White Blood Count 10.3 K/UL (4.8-10.8) Red Blood Count 4.14 M/UL (4.20-5.40) Hemoglobin 12.2 G/DL (12.0-16.0) Hematocrit 37.1 % (37.0-47.0) Mean Corpuscular Volume 90 FL (80-99) Mean Corpuscular Hemoglobin 29.6 PG (27.0-31.0) Mean Corpuscular Hemoglobin Concent 33.0 G/DL (32.0-36.0) Red Cell Distribution Width 13.2 % (11.6-14.8) Platelet Count 275 K/UL (150-450) Mean Platelet Volume 7.6 FL (6.5-10.1) Neutrophils (%) (Auto) 62.2 % (45.0-75.0) Lymphocytes (%) (Auto) 31.3 % (20.0-45.0) Monocytes (%) (Auto) 4.0 % (1.0-10.0) Eosinophils (%) (Auto) 1.6 % (0.0-3.0) Basophils (%) (Auto) 0.8 % (0.0-2.0) Urine Color Pale yellow Urine Appearance Cloudy Urine pH 6.5 (4.5-8.0) Urine Specific [place] 1.015 (1.005-1.035) Urine Protein 2+ (NEGATIVE) Urine Glucose (UA) 2+ (NEGATIVE) Urine Ketones 1+ (NEGATIVE) Urine Blood 5+ (NEGATIVE) Urine Nitrite Negative (NEGATIVE) Urine Bilirubin Negative (NEGATIVE) Urine Urobilinogen Normal MG/DL (0.0-1.0) Urine Leukocyte Esterase 1+ (NEGATIVE) Urine RBC 5-10 /HPF (0 - 2) Urine WBC 2-4 /HPF (0 - 2) Urine Squamous Epithelial Cells Moderate /LPF (NONE/OCC) Urine Bacteria Moderate /HPF (NONE) Sodium Level 137 MMOL/L (136-145) Potassium Level 3.7 MMOL/L (3.5-5.1) Chloride Level 104 MMOL/L (98-107) Carbon Dioxide Level 22 MMOL/L (21-32) Anion Gap 11 mmol/L (5-15) Blood Urea Nitrogen 6 mg/dL (7-18) Creatinine 0.9 MG/DL (0.55-1.30) Estimat Glomerular Filtration Rate > 60 mL/min (>60) Glucose Level 209 MG/DL (74-106) Calcium Level 10.6 MG/DL (8.5-10.1) Total Bilirubin 0.1 MG/DL (0.2-1.0) Aspartate Amino Transf (AST/SGOT) 5 U/L (15-37) Alanine Aminotransferase (ALT/SGPT) 19 U/L (12-78) Alkaline Phosphatase 86 U/L (46-116) Total Protein 6.9 G/DL (6.4-8.2) Albumin 2.9 G/DL (3.4-5.0) Globulin 4.0 g/dL Albumin/Globulin Ratio 0.7 (1.0-2.7) Lipase 129 U/L (73-393) Human Chorionic Gonadotropin, Quant 653536 mIU/mL (1-6) CT/MRI/US Diagnostic Results CT/MRI/US Diagnostic Results : Imaging Test Ordered: Pelvic ultrasound positive IUP Last Vital Signs Date Time Temp Pulse Resp B/P (MAP) Pulse Ox O2 Delivery O2 Flow Rate FiO2 07/24/18 01:21 98.2 85 16 179/91 98 Room Air Status: improved Disposition: HOME, SELF-CARE Condition: Stable Conrad Gonzales MD Jul 24, 2018 02:27
[2018-07-24 02:44] LABS: BASOPHILS % (AUTO) 0.8 % (0.0-2.0); EOSINOPHILS % (AUTO) 1.6 % (0.0-3.0); HEMATOCRIT 37.1 % (37.0-47.0); HEMOGLOBIN 12.2 G/DL (12.0-16.0); LYMPHOCYTES % (AUTO) 31.3 % (20.0-45.0); MEAN CORPUSCULAR VOLUME 90 FL (80-99); NEUTROPHILS % (AUTO) 62.2 % (45.0-75.0); PLATELET COUNT 275 K/UL (150-450); RED BLOOD COUNT 4.14 M/UL (4.20-5.40); RED CELL DISTRIBUTION WIDTH 13.2 % (11.6-14.8); WHITE BLOOD COUNT 10.3 K/UL (4.8-10.8)
[2018-07-24 02:45] LABS: APPEARANCE,URINE CLOUDY; BILIRUBIN, URINE NEGATIVE (NEGATIVE); COLOR,URINE PALE YELLOW; GLUCOSE, URINE (UA) 2+ (NEGATIVE); KETONES,URINE 1+ (NEGATIVE); LEUKOCYTE ESTERASE ,URINE 1+ (NEGATIVE); NITRITE,URINE NEGATIVE (NEGATIVE); PH,URINE 6.5 (4.5-8.0); PROTEIN,URINE 2+ (NEGATIVE); UROBILINOGEN,URINE NORMAL MG/DL (0.0-1.0)
[2018-07-24 02:58] LABS: ANION GAP 11 mmol/L (5-15); BLOOD UREA NITROGEN 6 mg/dL (7-18); CALCIUM 10.6 MG/DL (8.5-10.1); CARBON DIOXIDE 22 MMOL/L (21-32); CHLORIDE 104 MMOL/L (98-107); CREATININE 0.9 MG/DL (0.55-1.30); POTASSIUM 3.7 MMOL/L (3.5-5.1); SODIUM 137 MMOL/L (136-145)
[2018-07-24 03:03] LABS: ALANINE AMINOTRANSFERASE 19 U/L (12-78); ALBUMIN 2.9 G/DL (3.4-5.0); ALBUMIN/GLOBULIN RATIO 0.7 (1.0-2.7); ALKALINE PHOSPHATASE 86 U/L (46-116); ASPARTATE AMINO TRANSFERASE 5 U/L (15-37); BILIRUBIN,TOTAL 0.1 MG/DL (0.2-1.0)
--- NOTE | 2018-07-24 03:45 | NUR ---
ED Nurse Note: ERMD at bedside for pelvic exam.
--- NOTE | 2018-07-24 04:05 | NUR ---
ED Nurse Note: Patient cleared for discharge per ERMD. AO4. NAD. VSS. Accompanied by family member. Patient given prescriptions and discharge instructions; verbalized understanding. IV and ID band removed. Patient ambulated out with all personal belongings with steady gait.
[2018-07-24 04:16] VITALS: BP 179/91
--- NOTE | 2018-07-24 04:50 | Diagnostic Imaging Report ---
EXAM: US Ob 1St Trimester CLINICAL HISTORY: ABD PAIN TECHNIQUE: Real-time ultrasound of the ob 1st trimester with image documentation. COMPARISON: 07/19/18 FINDINGS: Single live IUP. EGA by crown rump length 10 weeks 2 days. heart rate 175 BPM. Suspected corpus luteal cyst left ovary. Remainder unremarkable. Small ovarian follicles. Blood flow seen to bilateral maternal ovaries. IMPRESSION: Single live IUP with EGA of 10 weeks 2 days.
== END 2018-07-24 04:05 | disposition home or self-care (01) ==
LOC: EMR 01:40
DX: O20.0 Threatened abortion (principal); Z3A.10 10 weeks gestation of pregnancy; O09.521 Supervision of elderly multigravida, first trimester
CPT/HCPCS: 36415; 76801; 76830; 80053; 81003; 83690; 84702; 85025; 86900; 86901; 87086; 99284

== ENCOUNTER 2019-09-03 12:49 | Emergency (ER) | payer MEDICAID ==
[~2019-09-03] VITALS: Ht 152.4 cm; Wt 97.5 kg
[2019-09-03] MEDS ORDERED: ADALAT20 MG ORAL (13:03)
[2019-09-03] MEDS ORDERED: ZANTAC150 MG ORAL (13:03)
[2019-09-03] MEDS ORDERED: Tamsulosin 0.4mg cap ORAL STA (13:36)
[2019-09-03] MEDS ORDERED: Omnipaque-300 100ml vial INJ PRN (13:45)
[2019-09-03] MEDS ORDERED: DiphenhydrAMINE 50mg/ml Inj IVP ONE (13:45)
[2019-09-03] MEDS ORDERED: Morphine Sulfate 4mg/ml Inj (IV USE ONLY) IVP ONE (13:45)
[2019-09-03] MEDS ORDERED: Metoclopramide 10mg/2ml Inj IVP ONE (13:45)
[2019-09-03] MEDS ORDERED: Ketorolac 30mg Inj IV ONE (13:45)
[2019-09-03 14:16] LABS: BASOPHILS % (AUTO) 0.7 % (0.0-2.0); EOSINOPHILS % (AUTO) 0.7 % (0.0-3.0); HEMATOCRIT 41.4 % (37.0-47.0); LYMPHOCYTES % (AUTO) 14.7 % (20.0-45.0); MEAN CORPUSCULAR VOLUME 87 FL (80-99); MONOCYTES % (AUTO) 2.9 % (1.0-10.0); PLATELET COUNT 278 K/UL (150-450); RED BLOOD COUNT 4.79 M/UL (4.20-5.40); RED CELL DISTRIBUTION WIDTH 12.8 % (11.6-14.8); WHITE BLOOD COUNT 11.8 K/UL (4.8-10.8)
[2019-09-03 14:33] LABS: ANION GAP 10 mmol/L (5-15); APPEARANCE,URINE CLEAR; BILIRUBIN, URINE NEGATIVE (NEGATIVE); BLOOD UREA NITROGEN 9 mg/dL (7-18); CALCIUM 11.4 MG/DL (8.5-10.1); CARBON DIOXIDE 27 MMOL/L (21-32); CHLORIDE 104 MMOL/L (98-107); COLOR,URINE PALE YELLOW; CREATININE 1.1 MG/DL (0.55-1.30); GLUCOSE, URINE (UA) NEGATIVE (NEGATIVE); KETONES,URINE NEGATIVE (NEGATIVE); LEUKOCYTE ESTERASE ,URINE NEGATIVE (NEGATIVE); NITRITE,URINE NEGATIVE (NEGATIVE); PH,URINE 7 (4.5-8.0); POTASSIUM 3.2 MMOL/L (3.5-5.1); PROTEIN,URINE 1+ (NEGATIVE); SODIUM 140 MMOL/L (136-145); UROBILINOGEN,URINE NORMAL MG/DL (0.0-1.0)
[2019-09-03 14:38] LABS: ALANINE AMINOTRANSFERASE 53 U/L (12-78); ALBUMIN 3.5 G/DL (3.4-5.0); ALBUMIN/GLOBULIN RATIO 0.9 (1.0-2.7); ALKALINE PHOSPHATASE 89 U/L (46-116); ASPARTATE AMINO TRANSFERASE 38 U/L (15-37); BILIRUBIN,TOTAL 0.3 MG/DL (0.2-1.0)
--- NOTE | 2019-09-03 15:30 | NUR ---
ED Nurse Note:pt. came from home with hypertention and abdomiinal pain, A/Ox4 ambulatory, blood and urine sent to labs, given IV meds and fluids
--- NOTE | 2019-09-03 15:30 | Emergency Room Report ---
History of Present Illness General Chief Complaint: Abdominal Pain Source: Patient Present Illness HPI The patient presents with left flank pain. She has a history of stones in the past. Today the flank pain is been severe but intermittent. When it severe she feels nauseated but has not vomited. The pain radiates somewhat towards her back. She feels the urge to move her bowels. She has not taken any medication aside from her blood pressure pills. She did not take her metformin this morning. She denies any fever chills. There is no hematuria. She is not at this time. She rates the pain 10/10 at this time. 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 She has had kidney stones in the past and feels similar to that. When she had a kidney stone she was admitted for over 2 weeks and had to have laser surgery. In [address] showed a 4 mm stone in the left ureterovesicular junction. She does not remember if this passed spontaneously. Sometimes she has passed stones without requiring surgery. Uncertain type of stone but recognizes calcium oxalate when prompted. History of diabetes and hypertension. History of Crohn's disease. History of thyroid disease. No sore throat, chest pain, palpitations, vomiting, diarrhea, shortness of breath, joint pain, rashes, visual changes, dizziness, headache. Allergies: Coded Allergies: No Known Allergies (Unverified , 12/18/13) Patient History Past Medical History: see triage record, old chart reviewed Past Surgical History: other - Laser renal stone extraction, tummy tuck Social History: Denies: smoking, drug use Social History Narrative has 7 month old child at home Last Menstrual Period: 08/13/19 Reviewed Nursing Documentation: PMH: Agreed; PSxH: Agreed Nursing Documentation-PMH Hx Cardiac Problems: No - Thyroid problems, Kidney stones Hx Hypertension: Yes Hx Asthma: Yes Hx Diabetes: Yes Hx Cancer: No Hx Gastrointestinal Problems: Yes - Crohn's Hx Neurological Problems: No Review of Systems All Other Systems: negative except mentioned in HPI Physical Exam Vital Signs Date Time Temp Pulse Resp B/P (MAP) Pulse Ox O2 Delivery O2 Flow Rate FiO2 09/03/19 12:58 98.4 92 23 192/126 (148) 96 Room Air Sp02 EP Interpretation: reviewed, normal General Appearance: well appearing, no apparent distress, GCS 15 Head: normocephalic, atraumatic Eyes: bilateral eye normal inspection, bilateral eye PERRL, bilateral eye EOMI ENT: moist mucus membranes Neck: supple Respiratory: lungs clear, normal breath sounds Cardiovascular #1: regular rate, rhythm, no edema Cardiovascular #2: 2+ radial (R) Gastrointestinal: normal inspection, non tender, no mass, non-distended, no guarding, no rebound, tenderness - Reported right mid and lower abdomen, decreased bowel sounds Genitourinary: no CVA tenderness Musculoskeletal: back normal, normal range of motion, gait/station normal Neurologic: alert, oriented x3, grossly normal Psychiatric: mood/affect normal - Though slightly anxious anticipating more pain Skin: no rash, warm/dry Medical Decision Making Diagnostic Impression: Primary Impression: Flank pain Additional Impressions: Renal colic Leukocytosis Qualified Codes: D72.825 - Bandemia Hypertension Qualified Codes: I10 - Essential (primary) hypertension Hyperglycemia ER Course Patient presents with left flank pain that severe with nausea with history of renal stones. Differential includes pyelonephritis, diverticulitis, renal stone amongst others. Patient evaluated with CT of the abdomen and labs. Patient will be treated with IV hydration, Toradol, Reglan, Benadryl and morphine. Patient also given a dose of Flomax. Leukocytosis. Low potassium. Elevated blood sugar. Normal renal function. Elevated calcium. Red blood cells without pyuria and urine. CT with 5 mm stone high in the ureter with mild hydronephrosis. 2 other stones in the left kidney not causing obstruction. Stranding along ureter and kidney. Pain improved with medication. Due to laboratory abnormalities and CT scan with stone high in ureter with stranding concerned about recurrence of pain and comorbidities and possible infection. Patient admitted to hospital. Blood pressure improved with treatment of pain. Due to leukocytosis and ureteral stranding Rocephin administered. Patient signed out to Dr. Greco for ultimate disposition. Laboratory Tests Test 09/03/19 13:50 White Blood Count 11.8 K/UL (4.8-10.8) H Red Blood Count 4.79 M/UL (4.20-5.40) Hemoglobin 14.0 G/DL (12.0-16.0) Hematocrit 41.4 % (37.0-47.0) Mean Corpuscular Volume 87 FL (80-99) Mean Corpuscular Hemoglobin 29.2 PG (27.0-31.0) Mean Corpuscular Hemoglobin Concent 33.7 G/DL (32.0-36.0) Red Cell Distribution Width 12.8 % (11.6-14.8) Platelet Count 278 K/UL (150-450) Mean Platelet Volume 8.4 FL (6.5-10.1) Neutrophils (%) (Auto) 81.0 % (45.0-75.0) H Lymphocytes (%) (Auto) 14.7 % (20.0-45.0) L Monocytes (%) (Auto) 2.9 % (1.0-10.0) Eosinophils (%) (Auto) 0.7 % (0.0-3.0) Basophils (%) (Auto) 0.7 % (0.0-2.0) Prothrombin Time 10.2 SEC (9.30-11.50) Prothrombin Time INR 1.0 (0.9-1.1) Activated Partial Thromboplast Time 26 SEC (23-33) Urine Color Pale yellow Urine Appearance Clear Urine pH 7 (4.5-8.0) Urine Specific [place] 1.010 (1.005-1.035) Urine Protein 1+ (NEGATIVE) H Urine Glucose (UA) Negative (NEGATIVE) Urine Ketones Negative (NEGATIVE) Urine Blood 5+ (NEGATIVE) H Urine Nitrite Negative (NEGATIVE) Urine Bilirubin Negative (NEGATIVE) Urine Urobilinogen Normal MG/DL (0.0-1.0) Urine Leukocyte Esterase Negative (NEGATIVE) Urine RBC 10-15 /HPF (0 - 2) H Urine WBC 2-4 /HPF (0 - 2) Urine Squamous Epithelial Cells Moderate /LPF (NONE/OCC) H Urine Bacteria Few /HPF (NONE) Sodium Level 140 MMOL/L (136-145) Potassium Level 3.2 MMOL/L (3.5-5.1) L Chloride Level 104 MMOL/L (98-107) Carbon Dioxide Level 27 MMOL/L (21-32) Anion Gap 10 mmol/L (5-15) Blood Urea Nitrogen 9 mg/dL (7-18) Creatinine 1.1 MG/DL (0.55-1.30) Estimate Glomerular Filtration Rate 54.5 mL/min (>60) Glucose Level 186 MG/DL (74-106) H Calcium Level 11.4 MG/DL (8.5-10.1) H Total Bilirubin 0.3 MG/DL (0.2-1.0) Aspartate Amino Transferase (AST) 38 U/L (15-37) H Alanine Aminotransferase (ALT) 53 U/L (12-78) Alkaline Phosphatase 89 U/L (46-116) Total Protein 7.6 G/DL (6.4-8.2) Albumin 3.5 G/DL (3.4-5.0) Globulin 4.1 g/dL Albumin/Globulin Ratio 0.9 (1.0-2.7) L Lipase 112 U/L (73-393) Human Chorionic Gonadotropin, Qual Negative (NEGATIVE) Rhythm Strip Diag. Results EP Interpretation: yes Rhythm: NSR, no PVC's, no ectopy CT/MRI/US Diagnostic Results CT/MRI/US Diagnostic Results : Imaging Test Ordered: Abdomen pelvis Impression Compared to 07/04/17 5 mm proximal left ureteral calculus causing mild hydronephrosis. 5 and 1 mm lower pole left intrarenal stones. Hepatic steatosis. Several colonic diverticula without diverticulitis. Unremarkable appendix. Last Vital Signs Date Time Temp Pulse Resp B/P (MAP) Pulse Ox O2 Delivery O2 Flow Rate FiO2 09/03/19 20:45 98.4 87 16 176/92 96 Room Air Status: improved Disposition: [facility] [place] [facility] Condition: Serious Mayco Hawk MD Sep 03, 2019 15:30
[2019-09-03 15:37] VITALS: BP 152/84
--- NOTE | 2019-09-03 16:12 | Diagnostic Imaging Report ---
Clinical Indication: Left flank pain, history of renal stones Technique: No oral contrast utilized, per emergency room physician request IV administration nonionic contrast. Venous phase spiral acquisition obtained through the abdomen and pelvis. Multiplanar reconstructions were generated. Total dose length product 778 mGycm. CTDIvol(s) 15 mGy. Dose reduction achieved using automated exposure control Comparison: 03/11/2017 contrast study and 07/04/2017 noncontrast Findings: There is a calculus in the proximal left ureter which measures 7 x 6 mm in diameter. This results in mild left hydronephrosis. There is perinephric fat stranding. There are also 2 left lower pole calyceal calculi, not evident previously. The 2 smaller left calyceal calculi demonstrated on the prior exam are not evident currently, nor is a distal ureteral calculus previously demonstrated. No right renal or ureteral calculi, right hydronephrosis or hydroureter demonstrated. No renal parenchymal mass or cyst demonstrated. The bladder is unremarkable. Lack of enteric contrast limits assessment of the GI tract. There are a few scattered colonic diverticula. No evidence of diverticulitis. The appendix is normal. No small bowel distention. No free or loculated intraperitoneal gas or fluid is evident. The distal esophagus, stomach, duodenum are unremarkable. The liver demonstrates relative hypoattenuation compared to the splenic, consistent with steatosis. The gallbladder, bile ducts, pancreas, spleen, adrenals are unremarkable. There are prominent but not frankly enlarged retroperitoneal nodes noted. Uterus and ovaries are unremarkable. The included lung bases are clear. The bones are unremarkable. Impression: Positive for 7 x 6 mm proximal left ureteral calculus, resulting in mild hydronephrosis, hydroureter, and perinephric fat stranding. 2 left nonobstructive intrarenal calculi Colonic diverticulosis Hepatic steatosis, also previously reported This agrees with the preliminary interpretation provided overnight by [facility] teleradiology service. The CT scanner at [facility] is accredited by the [employer] and the scans are performed using protocols designed to limit radiation exposure to as low as reasonably achievable to attain images of sufficient resolution adequate for diagnostic evaluation.
[2019-09-03] MEDS ORDERED: cefTRIAXone 1 GM in NS 55 ML IVPB ONE (16:45)
[2019-09-03 16:50] VITALS: BP 163/89
--- NOTE | 2019-09-03 18:16 | NUR ---
ED Nurse Note:called report to [facility], given to nurse Hernández
[2019-09-03 18:17] VITALS: BP 153/83
--- NOTE | 2019-09-03 19:06 | NUR ---
ED Nurse Note: Report recieved from WILL Herrera. Pt resting in bed, VSS, no s/s of distress noted.
[2019-09-03 19:27] VITALS: BP 154/86
[2019-09-03 20:45] VITALS: BP 176/92
--- NOTE | 2019-09-03 20:45 | NUR ---
ER DISCHARGE NOTE: Patient is cleared to be discharged to [facility] with [facility] per [facility]O, pt is aox4, on room air, with elevated BP 176/952, HR 87; ermd aware and cleared pt. pt was given dc instructions, pt was able to verbalize understanding, pt id band removed. pt is able to ambulate with steady gait. pt took all belongings.
== END 2019-09-03 20:45 | disposition short-term general hospital (02) ==
LOC: EMR 13:58
DX: R10.9 Unspecified abdominal pain (principal); N23 Unspecified renal colic; D72.825 Bandemia; I10 Essential (primary) hypertension; E11.65 Type 2 diabetes mellitus with hyperglycemia; K50.90 Crohn's disease, unspecified, without complications; N13.2 Hydronephrosis with renal and ureteral calculous obstruction; N20.0 Calculus of kidney; K76.0 Fatty (change of) liver, not elsewhere classified; K57.90 Diverticulosis of intestine, part unspecified, without perforation or abscess without bleeding
CPT/HCPCS: 36415; 74177; 80053; 81003; 83690; 84703; 85025; 85610; 85730; 96361; 96365; 96375; J0696; J1200; J1885; J2270; J2765; J7030; Q9967; Z7502; 99285